=== PATIENT | female | born 2000 | race Caucasian/White ===

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

== ENCOUNTER → 2022-06-27 | Outpatient (CLI) | payer OTHER ==
--- NOTE | 2022-06-27 08:24 | USB ---
Technique: Method: Whole Breast Handheld. Findings: The whole breast of the right breast, the axilla of the right breast and the retroareolar of the right breast were scanned. Hypoechoic lesion at the 9:00 position is again noted and measures 7 5 x 7 mm versus prior measurement of 7 x 6.9 mm. No additional lesions are noted. Lesion is smaller when compared to study of 09/09/2019 and 02/24/2019. Overall Assessment: Benign, BI-RAD 2 Management: Screening Mammogram of both breasts at age 41. A clinical breast exam by your physician is recommended on an annual basis and results should be correlated with mammographic findings. This exam should not preclude additional follow-up of suspicious palpable abnormalities. Results were given to the patient verbally at the time of exam. Electronically signed and approved by: Kings Carvajal M.D. Radiologis
[2022-06-27 14:22] LABS: Basophils # (A) 0.06 X 10*3/uL (0.00-0.10); Basophils % (A) 0.7 %; Eosinophils # (A) 0.28 X 10*3/uL (0.04-0.35); Eosinophils % (A) 3.4 %; HCT 37.6 % (37.2-46.3); HGB 12.5 g/dL (12.0-15.0); Immature Grans, Automated 1.1 %; Lymphocytes # (A) 2.81 X 10*3/uL (0.90-5.00); Lymphocytes % (A) 34.2 %; MCHC 33.2 g/dL (32.0-37.0); MCV 87.2 fL (80.0-97.0); Mean Platelet Volume 9.6 fL (9.5-12.2); Monocytes # (A) 0.63 X 10*3/uL (0.20-1.00); Monocytes % (A) 7.7 %; NRBC Per 100 WBC 0 /100 WBCS (0.0-0.0); Neutrophils # (A) 4.34 X 10*3/uL (1.80-7.70); Neutrophils % (A) 52.9 %; Platelet Count 318 X 10*3/uL (140-440); RBC 4.31 X 10*6/uL (4.10-5.20); RDW 12.2 % (11.5-14.5); WBC 8.21 X 10*3/uL (4.50-10.00)
[2022-06-27 16:42] LABS: Ferritin 74.7 ng/mL (10.0-291.0)
[2022-06-27 16:48] LABS: % Iron Saturation 33.61 (12.00-45.00); African American GFR (CKD) 128.1 (60.0-200.0); Albumin 4.6 g/dL (3.8-4.9); Albumin/Globulin Ratio 1.99 (1.60-3.17); Anion Gap 12.5 mmol/L (10.00-18.00); BUN/Creat Ratio 17.69 Ratio (12.00-20.00); Blood Urea Nitrogen 13.6 mg/dL (9.0-27.0); Calcium 9.3 mg/dL (8.7-10.3); Carbon Dioxide 25.8 mmol/L (20.0-27.5); Globulin 2.3 g/dL (1.6-3.3); Non-African American GFR(CKD) 110.6 (60.0-200.0); Potassium 3.6 mmol/L (3.5-5.5); Total Bilirubin 0.3 mg/dL (0.30-1.20); Total Protein 6.9 g/dL (6.2-8.2)
== END | disposition home or self-care (01) ==
LOC: RADUSWWP 07:56
PROVIDERS: ATTEND Family Medicine
DX: Z11.3 Encounter for screening for infections with a predominantly sexual mode of transmission (principal); D64.9 Anemia, unspecified; N60.01 Solitary cyst of right breast
CPT/HCPCS: 80053; 82728; 83540; 83550; 85025; 87491; 87591

== ENCOUNTER → 2024-07-07 | Outpatient (CLI) | payer OTHER ==
[2024-07-07 11:42] VITALS: BP 123/87; PULSE 80; RESP 17; TEMP 98.1
--- NOTE | 2024-07-07 11:55 | P.GSCN ---
History of Present Illness Consult date: 07/07/24 Reason for Consult: cyst right breast Requesting physician: Humberto La History of present illness: Felicitas is a 24 year old female seen in consultation for Dr. Humberto La regarding a right breast lesion. She had a right breast ultrasound on 02-24-19, and 06-27-22. These showed a stable hypoechocic lesion at 9 oclock which was 7.5 by 7 mm which saw felt to be stable. She feels a lump in her right breast which had been stable for several years. She noted changes around the site. She has not had any surgery on her breast. She is not complaining of any recent trauma or infection in her breast. She is not complaining of any nipple discharge. Does note skin changes with a black hair in the vicinity of the palpable nodule. The nodule gets more tender near her periods. Caffeine: 2 cups coffee/day nicotine: none chocolate: daily BCP: none never used hormone: none Family History: maternal great grandmother: breast cancer maternal grandfather: skin cancer ? type Hormonal History: menarche: 13 P0 sexually active Yes LMP: two days ago Surgical History: none Medical History: none Social History: nicotine: none alcohol: monthly, vodka Marijuana: Stopped about a month ago Review of Systems - Constitutional Denies fever, Denies weight loss - EENT Eyes: denies blurred vision Ears: deny: decreased hearing, tinnitus Ears, nose, mouth and throat: Denies dysphagia - Breasts bilateral: as per HPI - Cardiovascular Denies chest pain, Denies shortness of breath - Respiratory Denies cough, Denies 7 - Gastrointestinal Reports as per HPI - Genitourinary Genitourinary: Denies dysuria, Denies hematuria Menstruation: Reports period normal - Musculoskeletal Reports as per HPI - Integumentary Denies rash, Denies unusual bruising - Neurological Denies headaches, Denies syncope - Psychiatric Reports as per HPI - Endocrine Endocrine Comment(s): losing weight about 1 year ago, lost about 10 pounds Reports as per HPI, Reports weight change - Hematologic/Lymphatic Denies easy bleeding, Denies easy bruising - Allergic/Immunologic Reports as per HPI Past Medical History Past Medical History: No Reported History History of Any Multi-Drug Resistant Organisms: None Reported Past Surgical History: No Surgical Hx Reported Past Psychological History: No Psychological Hx Reported Past Alcohol Use History: None Reported Past Drug Use History: None Reported Medications and Allergies Home Medications Medication Instructions Recorded Confirmed Type No Known Home Medications 12/23/18 12/23/18 History Allergies Allergy/AdvReac Type Severity Reaction Status Date / Time amoxicillin Allergy Rash/Hives Verified 07/07/24 11:38 Surgical - Exam - General no distress - Eyes normal ocular movement - ENT no hearing loss - Neck trachea midline - Respiratory normal respiratory effort, clear to auscultation - Cardiovascular Rhythm: regular Heart Sounds: normal: S1, S2 - Abdomen Abdomen: soft, non tender, no guarding, no rigid, no rebound - Integumentary normal turgor - Neurologic no disoriented, no combative - Musculoskeletal normal gait - Psychiatric oriented to time, oriented to person, oriented to place, speech is normal Breast Exam: BRA: 32A Inspection: Bilateral grade 2 ptosis, black hair in the periareolar region on the right Palpation: Right breast: Multi positional exam approximately 8 by 7 mm nodule in the lateral aspect of the periareolar region, otherwise no dominant masses or nodules of concern; with palpation there appears to be some discoloration of the skin this is very close to the surface of the skin and may represent some type of a cyst Right axilla: No adenopathy of concern Left breast: Multi positional exam no dominant masses or nodules of concern Left axilla: No adenopathy of concern Results Ultrasound of right breast personally reviewed with radiology, there is what appears to be a stable from 20 19-20 22 nodular hypoechoic area in the periareolar region at 9:00 on the right, her Assessment and Plan Assessment: Impression: Nodule right periareolar region Fibrocystic breast changes Plan: Repeat right breast ultrasound as nodule may have increased in size is more symptomatic for the patient Follow-up after repeat right breast ultrasound Depending on results of the ultrasound would consider resection of palpable, symptomatic mass in the operating room CC: Dr. Humberto La
== END ==
LOC: WWCWWP 11:21
PROVIDERS: ATTEND Surgery
DX: N60.01 Solitary cyst of right breast (principal); N63.10 Unspecified lump in the right breast, unspecified quadrant; N60.11 Diffuse cystic mastopathy of right breast; Z80.3 Family history of malignant neoplasm of breast; Z88.0 Allergy status to penicillin

== ENCOUNTER → 2024-08-19 | Outpatient (CLI) | payer OTHER ==
--- NOTE | 2024-08-19 14:30 | USB ---
Reason for Exam: Clinical finding. Technique: Method: Targeted. Findings: The periareolar of the right breast, the axilla of the right breast and the retroareolar of the right breast were scanned. At the 9:00 position there is a persistent hypoechoic area with good through transmission. A few internal echoes are present. This has significantly cleared over the interval. No interval growth is evident. Overall Assessment: Benign, BI-RAD 2 Management: Screening Mammogram of both breasts at age 41. A clinical breast exam by your physician is recommended on an annual basis and results should be correlated with mammographic findings. This exam should not preclude additional follow-up of suspicious palpable abnormalities. Results were given to the patient verbally at the time of exam. [facility], , 08/19/2024 2:27 PM. Electronically signed and approved by: Antonio Chicas D.O. Radiologis
== END | disposition home or self-care (01) ==
LOC: RADUSWWP 14:02
PROVIDERS: ATTEND Surgery
DX: N63.0 Unspecified lump in unspecified breast (principal)

== ENCOUNTER → 2024-08-26 | Outpatient (CLI) | payer OTHER ==
[2024-08-26 13:05] VITALS: BP 119/68; PULSE 100; RESP 16; TEMP 98.1
--- NOTE | 2024-08-26 13:14 | P.PN ---
Subjective Progress Note Date: 08/26/24 08-26-24 Reason for Consult: cyst right breast Requesting physician: Humberto La History of present illness: Felicitas is a 24 year old female seen in consultation for Dr. Humberto La regarding a right breast lesion. She had a right breast ultrasound on 02-24-19, and 06-27-22. These showed a stable hypoechocic lesion at 9 oclock which was 7.5 by 7 mm which saw felt to be stable. She feels a lump in her right breast which had been stable for several years. She noted changes around the site. She has not had any surgery on her breast. She is not complaining of any recent trauma or infection in her breast. She is not complaining of any nipple discharge. Does note skin changes with a black hair in the vicinity of the palpable nodule. The nodule gets more tender near her periods repeat ultrasound of the right breast 08-19-24, persistent hypoechoic area at the 9:00 position Caffeine: 2 cups coffee/day nicotine: none chocolate: daily BCP: none never used hormone: none Family History: maternal great grandmother: breast cancer maternal grandfather: skin cancer ? type Hormonal History: menarche: 13 P0 sexually active Yes LMP: two days ago Surgical History: none Medical History: none Social History: nicotine: none alcohol: monthly, vodka Marijuana: Stopped about a month ago Review of Systems - Constitutional Denies fever, Denies weight loss - EENT Eyes: denies blurred vision Ears: deny: decreased hearing, tinnitus Ears, nose, mouth and throat: Denies dysphagia - Breasts bilateral: as per HPI - Cardiovascular Denies chest pain, Denies shortness of breath - Respiratory Denies cough - Gastrointestinal Reports as per HPI - Genitourinary Genitourinary: Denies dysuria, Denies hematuria Menstruation: Reports period normal - Musculoskeletal Reports as per HPI - Integumentary Denies rash, Denies unusual bruising - Neurological Denies headaches, Denies syncope - Psychiatric Reports as per HPI - Endocrine Endocrine Comment(s): losing weight about 1 year ago, lost about 10 pounds Reports as per HPI, Reports weight change - Hematologic/Lymphatic Denies easy bleeding, Denies easy bruising - Allergic/Immunologic Reports as per HPI Past Medical History Past Medical History: No Reported History History of Any Multi-Drug Resistant Organisms: None Reported Past Surgical History: No Surgical Hx Reported Past Psychological History: No Psychological Hx Reported Past Alcohol Use History: None Reported Past Drug Use History: None Reported Medications and Allergies Home Medications Medication Instructions Recorded Confirmed Type No Known Home Medications 12/23/18 12/23/18 History Allergies Allergy/AdvReac Type Severity Reaction Status Date / Time amoxicillin Allergy Rash/Hives Verified 07/07/24 11:38 Objective - Vital Signs Vital signs: Vital Signs Temp 98.1 F 08/26/24 13:03 Pulse 100 08/26/24 13:03 Resp 16 08/26/24 13:03 BP 119/68 08/26/24 13:03 Pulse Ox 98 08/26/24 13:03 FiO2 Intake & Output 08/25/24 08/26/24 08/26/24 18:59 06:59 18:59 Weight 44.452 kg - Constitutional General appearance: Present: cooperative - EENT Eyes: Present: EOMI ENT: Present: hearing grossly normal - Neck Neck: Present: normal ROM - Respiratory Respiratory: bilateral: CTA - Cardiovascular Rhythm: regular Heart sounds: normal: S1, S2 - Integumentary Integumentary: Present: normal turgor - Musculoskeletal Musculoskeletal: Present: gait normal - Psychiatric Psychiatric: Present: A&O x's 3, appropriate affect, intact judgment & insight - Additional findings Additional findings: Breast Exam: BRA: 32A Inspection: Bilateral grade 2 ptosis, black hair in the periareolar region on the right Palpation: Right breast: Multi positional exam approximately 8 by 7 mm nodule in the lateral aspect of the periareolar region, otherwise no dominant masses or nodules of concern; with palpation there appears to be some discoloration of the skin this is very close to the surface of the skin and may represent some type of a cyst Right axilla: No adenopathy of concern Left breast: Multi positional exam no dominant masses or nodules of concern Left axilla: No adenopathy of concern Assessment and Plan Assessment: Assessment and Plan Assessment: Impression: Nodule right periareolar region Fibrocystic breast changes Plan: Resection of palpable mass right breast in the 9:00 periareolar region in the operating room Dr. Humberto La Patient passed functional assessment arm abduction Preoperative education given to the patient Risk and benefits of the procedure discussed with the patient. Risk include but are not not limited to bleeding, infection, reaction to the anesthetic. She understands and wishes to proceed. CC: Dr. Humberto La
== END ==
LOC: WWCWWP 12:06
PROVIDERS: ATTEND Surgery
DX: N63.15 Unspecified lump in the right breast, overlapping quadrants (principal); N60.11 Diffuse cystic mastopathy of right breast; Z80.3 Family history of malignant neoplasm of breast; Z88.0 Allergy status to penicillin

== ENCOUNTER 2024-09-13 11:49 | Day surgery (SDC) | payer OTHER ==
[~2024-09-13 11:49] MED LIST: HYDROmorphone 0.5 MG/0.5 ML SYRINGE IVP PRN
[2024-09-13] MEDS: LACTATED RINGERS 1,000 ML IV SCH (13:19)
[2024-09-13] MEDS: IV FLUID CONTINUATION 1,000 ML IV ONE (13:19)
[2024-09-13] MEDS: LIDOCAINE 1% (10MG/ML) FOR IV START INTRADERMA STA (13:19)
[2024-09-13] MEDS: ACETAMINOPHEN TAB 500 MG TAB PO PRN (13:19)
[2024-09-13] MEDS: DEXAMETHASONE SOD PHOSPHATE 4 MG/ML 1 ML VIAL IV ONE (13:27)
[2024-09-13] MEDS: HEPARIN SODIUM,PORCINE 5,000 UNIT/ML 1 ML VIAL SQ PRN (13:27)
[2024-09-13] MEDS: ONDANSETRON 4 MG/2 ML VIAL IVP ONE (13:27)
[2024-09-13] MEDS ORDERED: LIDOCAINE 1% INJ 10MG/ML (20 ML MDV) ONE (15:28)
[2024-09-13] MEDS ORDERED: MIDAZOLAM 2 MG/2 ML VIAL ONE (15:28)
[2024-09-13] MEDS ORDERED: PROPOFOL 10 MG/ML 20 ML VIAL IV ONE (15:28)
[2024-09-13] MEDS ORDERED: fentaNYL (PF) 50 MCG/ML 2 ML AMP ONE (15:28)
[2024-09-13] MEDS: LIDOCAINE 2% INJ 20 MG/ML SQ ONE (15:56)
--- NOTE | 2024-09-13 16:11 | P.BCAON ---
Date of Procedure: 09/13/24 Preoperative Diagnosis: Nodule right breast 9:00 periareolar region Postoperative Diagnosis: Same Procedure(s) Performed: Excision nodule right breast Anesthesia: LORAINEA Surgeon: Piper Lehman Estimated Blood Loss (ml): 2 IV fluids (ml): 300 Pathology: other (Breast cyst) Condition: stable Indications for Procedure: Palpable nodule right breast 9:00 periareolar region Operative Findings: Cyst right breast 9:00 periareolar region Description of Procedure: Patient was brought to the operative suite and following induction of anesthesia the right breast was prepped and draped in a sterile fashion. Periareolar incision was made at the 9:00 region. A palpable mass was identified at this site. Upon making the incision it was noted that this was cystic in nature. The cyst wall and its wall were excised. It was approximately 8 mm in size. Following this after reassured that hemostasis was attained the deep tissues were closed using 3-0 Vicryl suture. The skin was closed using 4-0 Monocryl. The patient tolerated the procedure in stable condition. All instruments and sponge counts were correct at the end of the case.
[2024-09-13 16:28] VITALS: TEMP 97.2
[2024-09-13 17:14] VITALS: BP 111/69; PULSE 94; RESP 14
== END 2024-09-13 17:28 | disposition home or self-care (01) ==
LOC: OR 11:49
PROVIDERS: ATTEND Surgery
DX: N60.11 Diffuse cystic mastopathy of right breast (principal); N60.01 Solitary cyst of right breast; E55.9 Vitamin D deficiency, unspecified; Z79.899 Other long term (current) drug therapy; Z68.20 Body mass index [BMI] 20.0-20.9, adult; Z88.1 Allergy status to other antibiotic agents
CPT/HCPCS: 81025; 88307; 19120; J2250; J1100; J2405; J0690; J2003 ×2; J3010; J2704